=== PATIENT | female | born 2000 | race Caucasian/White ===

== ENCOUNTER 2021-01-08 18:17 | Emergency (ER) | payer BC ==
[~2021-01-08] VITALS: Ht 175.3 cm; Wt 75.0 kg
[2021-01-08 18:26] VITALS: BP 123/74; TEMP 98.8
[2021-01-08] MEDS ORDERED: ALDACTONE 25MG25 M1 PO (18:42)
[2021-01-08 19:06] VITALS: PULSE 75
== END 2021-01-08 19:07 | disposition home or self-care (01) ==
LOC: COL.ER 18:17
DX: S91.312A Laceration without foreign body, left foot, initial encounter (principal); W26.8XXA Contact with other sharp object(s), not elsewhere classified, initial encounter; Y93.E1 Activity, personal bathing and showering

== ENCOUNTER → 2021-01-18 | Outpatient (CLI) | payer BC ==
[~2021-01-18] MED LIST: ALDACTONE 25MG25 M1 PO
[2021-01-18 15:22] VITALS: BP 107/69; PULSE 63; TEMP 98.5
== END ==
LOC: COL.ER 15:10
DX: Z48.02 Encounter for removal of sutures (principal)